=== PATIENT | male | born 1975 | race Hispanic/Latino ===

== ENCOUNTER 2019-10-30 09:30 | Emergency (ER) | payer MEDICARE ==
[2019-10-30 09:36] VITALS: BP 142/82
[2019-10-30] MEDS ORDERED: KETOROLAC 30 MG/1 ML INJ IM ONE (10:32)
--- NOTE | 2019-10-30 10:57 | Emergency Department Report ---
Chief Complaint: Extremity Injury, Upper Stated Complaint: SWOLLEN FINGER Time Seen by Provider: 10/30/19 10:07 - HPI History of Present Illness: This 44-year-old male presents the ED complaining of left middle finger nail redness and swelling x2 to 3 days. Patient states that he noticed some redness to the fingertip 2 to 3 days ago. Patient states that he has some pain associated with the redness. Patient denies biting fingers or having any injuries to the finger. Patient is able to utilize the hands and fingers without any problems He denies fever/chills/nausea vomiting - ROS Review of Systems: As noted in HPI - Exam Vital Signs: Vital Signs 10/30/19 09:35 Temperature 98.0 F Pulse Rate 91 H Respiratory 18 Rate Blood Pressure 142/82 O2 Sat by Pulse 95 Oximetry Physical Exam: GENERAL: Alert and oriented x3, no apparent distress, Normal Gait, atraumatic. HEAD: Head is normocephalic and a-traumatic. EXTREMITIES/MUSCULOSKELETAL: Mild erythema associated with the left middle fingertip, no drainage, mildly tender to palpation about 0.5 cm in diameter no cyanosis, clubbing, rash, lesions or edema. Full ROM bilaterally. UE Pulses 2+ bilaterally. NEUROLOGIC: The patient is cooperative with no focal neurologic deficits. SKIN: Warm and dry, No lesions, No ulceration or induration present. MSE screening note: Focused history and physical exam performed. Due to findings the following was ordered: ED Medical Decision Making - Medical Decision Making 44-year-old male who presented with paronychia of the middle finger of the left hand. Small cellulitic area to the fingertip. Discussed with patient antibiotic therapy for cellulitis and to follow-up with primary care physician in 3 to 5 days. Vital signs are normal patient is in no acute distress he understands instructions. Patient was given Toradol in the ED for pain. ED Disposition for MSE Clinical Impression: Paronychia, Paronychia of finger of left hand Disposition: - TO HOME OR SELFCARE Is pt being admited?: No Does the pt Need Aspirin: No Condition: Stable Instructions: Paronychia (ED) Additional Instructions: Make sure to follow up with the primary care physician as discussed. Take all your medications as you've been prescribed. If you have any worsening symptoms or develop new symptoms please return to ED immediately. Prescriptions: cephALEXin [Keflex] 500 mg PO Q12HR #10 cap Ibuprofen [Motrin] 800 mg PO Q8HR #30 tablet Referrals: [facility] [Outside] - 3-5 Days [facility] [Outside] - 3-5 Days [facility] [Outside] - 3-5 Days Forms: Accompanied Note, Work/School Release Form(ED) Time of Disposition: 11:14
== END 2019-10-30 11:23 | disposition home or self-care (01) ==
LOC: ED 09:30
DX: L03.012 Cellulitis of left finger (principal); Z98.890 Other specified postprocedural states
CPT/HCPCS: 96372; 99282; J1885

== ENCOUNTER 2019-11-01 08:16 | Emergency (ER) | payer MEDICARE, MEDICAID ==
[2019-11-01 08:21] VITALS: BP 128/74
== END 2019-11-01 09:14 ==
LOC: ED 08:16
DX: M79.645 Pain in left finger(s) (principal); Z53.21 Procedure and treatment not carried out due to patient leaving prior to being seen by health care provider